=== PATIENT | female | born 1955 | race Hispanic/Latino ===

== ENCOUNTER 2018-07-02 08:19 | Day surgery (SDC) | payer OTHER ==
--- NOTE | 2018-07-01 14:45 | EKG ---
Test Date: 2018-07-01 Test Time: 14:20:19 Cellar Hand: ADRIEN MEASUREMENT RESULTS: Intervals: Rate: 71 MS: 142 QRSD: 76 QT: 400 QTc: 434 Ingalls: P: 57 MS: 142 QRS: 32 T: 60 INTERPRETIVE STATEMENTS: Normal sinus rhythm Normal ECG Compared to ECG 04/10/2013 12:47:05 No significant changes Electronically Signed On 07-01-18 14:44:49 CDT by Scott Kenyon
--- NOTE | 2018-07-01 14:47 | RAD REPORT ---
EXAM DESCRIPTION: RAD - Chest Pa And Lat (2 Views) - 07/01/2018 2:33 pm CLINICAL HISTORY: Preop chest, pending cholecystectomy COMPARISON: April 2013 TECHNIQUE: PA and lateral views of the chest were obtained. FINDINGS: The lungs are clear. Heart size is normal and central vasculature is within normal limit s. No pleural effusion or pneumothorax seen. No acute bony finding noted. No aortic abnormality. IMPRESSION: No acute cardiopulmonary process.
[2018-07-01 15:19] LABS: Absolute Lymphocytes (CBC) 1.7 K/uL (0.7-4.9); Absolute Monocytes 0.5 K/uL (0.1-1.3); Absolute Neutrophil 4.4 K/uL (1.8-8.0); Basophils % 0.6 % (0-1.3); Eosinophils % 0.5 % (0-4.4); Hematocrit 38.2 % (36.0-45.0); Lymphocytes % 25.2 % (15.3-44.8); MCH 31.3 pg (27.0-35.0); MCV 92.5 fL (80-100); MPV 8.4 fL (7.6-11.3); Monocytes % 7.2 % (3.3-12.3); RBC Red Blood Cell Count 4.14 M/uL (3.86-4.86)
[2018-07-01 15:41] LABS: ALT/SGPT 18 U/L (12-78); AST/SGOT 22 U/L (15-37); Albumin 3.9 g/dL (3.4-5.0); Alkaline Phosphatase 86 U/L (45-117); Amylase Level 74 U/L (25-115); Bilirubin Direct < 0.1 mg/dL (0-0.2); Bilirubin Total 0.2 mg/dL (0.2-1.0); Lipase 214 U/L (73-393); Potassium 4.2 mmol/L (3.5-5.1); Protein, Total 7.8 g/dL (6.4-8.2)
[2018-07-02] MEDS ORDERED: Ringers Lactate 1,000 ML IV ONE (08:33)
[2018-07-02] MEDS ORDERED: PROPOFOL 200 MG/20 ML VIAL IV ONE (08:54)
[2018-07-02] MEDS ORDERED: FENTANYL CITR 100 MCG/2 ML ONE ×2 (08:54→09:52)
[2018-07-02] MEDS ORDERED: LIDOCAINE 2% MPF 5 ML VIAL ONE (08:55)
[2018-07-02] MEDS ORDERED: ROCURONIUM 50 MG/5 ML VIAL IV ONE (08:55)
[2018-07-02] MEDS ORDERED: ONDANSETRON HCL 40 MG/20 ML VIAL ONE (08:55)
[2018-07-02] MEDS ORDERED: MIDAZOLAM HCL 2 MG/2 ML INJ ONE (08:55)
[2018-07-02] MEDS ORDERED: CEFOXITIN/SWI 1gm 1 GM/10 ML SYR ONE (09:05)
[2018-07-02] MEDS ORDERED: BUPIVACAINE 0.5% PF 10 ML VIAL SQ ONE ×2 (09:39)
[2018-07-02] MEDS ORDERED: BUPIVACAINE 0.5% PF 10 ML VIAL ONE ×2 (09:45→11:28)
--- NOTE | 2018-07-02 10:01 | P.BOP ---
Preoperative diagnosis: RUQ abdominal pain, cholecystitis, gallbladder polyps Postoperative diagnosis: same Primary procedure: Laparoscopic cholecystectomy Estimated blood loss: <10cc Specimen: gb Findings: as above Anesthesia: General Complications: None Transferred to: Recovery Room Condition: Good
[2018-07-02] MEDS ORDERED: GLYCOPYRROLATE 0.2 MG/ML SYR ONE (10:05)
[2018-07-02] MEDS: MEPERIDINE HCL 50 MG/ML AMP ONE ×2 (10:35→10:48)
[2018-07-02] MEDS ORDERED: HYDROCODONE/APAP 5/325 MG TAB ONE (11:21)
[2018-07-02] MEDS ORDERED: ONDANSETRON 4 MG/2 ML VIAL ONE (11:25)
--- NOTE | 2018-07-02 17:15 | OP ---
Date of Procedure: 07/02/2018 Surgeon: Antione Ferguson MD Preoperative Diagnoses: Right upper quadrant abdominal pain, acute cholecystitis, gallbladder polyps . Postoperative Diagnoses: Right upper quadrant abdominal pain, acute cholecystitis, gallbladder polyp s. Procedure: Laparoscopic cholecystectomy. Specimen: Gallbladder. Anesthesia: General plus local. Indications: This is a case of a female, who came to us with persistent epigastric right upper quadr ant pain, diagnosed with acute cholecystitis, also found to have gallbladder polyps. The patient full y explained the benefits, alternatives, and risks of laparoscopic,, possible open cholecystectomy as 1 alternative which include, but not limited to infection, bleeding, damage to adjacent structures, a nesthesia complication, choledocholithiasis, bile leak, pancreatitis, OK, and even . She also u nderstands this may not relieve any symptoms. She might need more than one surgical intervention. S he understands. The consent policy was explained to her in details. She does not want to wait, she wants the gallbladder out. Description Of Procedure: The patient brought to the operating room, placed in supine position. Ane sthesia was done without complication. Abdominal area was prepped and draped in a sterile fashion. Marcaine 0.5% injected for local anesthetic, followed by sharp incision of the skin in the infraumbil ical region. Incision was carried down to fascia, which was opened under direct vision. Peritoneum was encountered, opened under direct vision. Vicryl #1 placed inside the fascia. Yuliana trocar was carefully introduced. No bleeding was obtained. I placed 3 more trocars, 5 mm each one of them, in the right upper quadrant under direct visualization. This allowed me to put a grasper in the fundus of the gallbladder. There are many adhesions to the gallbladder. Carefully they were removed. I di d not see any extraluminal or extra biliary masses at least in the area of the gallbladder. We were able to remove the adhesions down and then proceed with identifying the cystic duct and cystic artery . They were isolated free circumferentially and a connection between those and the gallbladder was c learly identified. I proceeded to ligate those by using at least 3 clips proximal, 1 clip distal, li gation in middle. Same was done with the cystic artery. No bile leak. No bleeding. Hepatic arteri es and common bile duct were protected at all times. The area was inspected once again. The gallbla dder was removed from liver using Bovie cauterizer, then the gallbladder was removed from the abdomen with an EndoCatch through the umbilical incision. The area was inspected once again. Gallbladder f kailey looked intact. Clips were intact. At that moment, I proceeded to remove the trocars under dire ct vision. Deflated pneumoperitoneum. Closed the fascia with #1 Vicryl. Irrigated subcu tissue, cl osed that with 3-0 chromic and skin with abraham. Sponge count and instrument counts were correct. The patient tolerated the procedure well. The patient was sent to recovery in stable condition. MYRNA/ALDO Voice ID: [id number] Report ID: [id number]
--- NOTE | 2018-07-02 17:27 | DS ---
Date of Discharge: 07/02/2018 Diagnoses: Right upper quadrant abdominal pain acute cholecystitis, gallbladder polyps. Procedure: Laparoscopic cholecystectomy. Disposition: Home. Activity: As tolerated. No heavy lifting. Followup: Follow up in my office in 1 week. Call for appointment [phone]. Medications: Include Bactrim DS p.o. b.i.d. and Vicodin q.4 hours p.r.n. pain. MYRNA/ALDO Voice ID: [id number] Report ID: [id number]
== END 2018-07-02 12:50 | disposition home or self-care (01) ==
LOC: OR 08:19
PROVIDERS: ATTEND Surgery
PROC: 0FT44ZZ Resection of Gallbladder, Percutaneous Endoscopic Approach (ICD-10-PCS; principal; 2018-07-02 10:15)
DX: K81.0 Acute cholecystitis (principal); R10.13 Epigastric pain; M79.7 Fibromyalgia; K82.8 Other specified diseases of gallbladder
CPT/HCPCS: 36415; 71046; 80048; 80076; 82150; 83690; 85025; 88304; 93005; J2175; J2250; J2405; J3010